=== PATIENT | male | born 1950 | race Caucasian/White ===

== ENCOUNTER → 2017-06-11 | Outpatient (CLI) | payer MEDICARE, BC ==
[~2017-06-11] MED LIST: ATORVASTATIN CA80 MG PO; DOXYCYCLINE HY100 M4 PO; FENOFIBRATE MI200 MG PO; LISINOPRIL20 MG PO; LOPRESSOR 25MG.25 MG PO; METFORMIN HCL1000 MG PO; NAPROSYN 500MG500 MG PO; PERCOCET1 TAB PO; PROAIR HFA0.09 MG/AC IH; SPIRIVA HA1 PUFF/INH IH; TESSALON PERLE100 M1 PO
[2017-06-11 09:18] LABS: HEMOGLOBIN 15.3 g/dL (14.1-18.0); LYMPH # 3.2 K/mm3 (0.7-4.5); LYMPH % 44.6 % (10-50)
[2017-06-11 10:33] LABS: BUN 19 mg/dL (7-18)
[2017-06-11 11:00] LABS: GFR (ESTIMATED) 55 ML/MIN (>60)
== END ==
LOC: LAB 09:08
PROVIDERS: Internal Medicine Adolescent Medicine
DX: E78.5 Hyperlipidemia, unspecified (principal); E55.9 Vitamin D deficiency, unspecified; I10 Essential (primary) hypertension; Z00.00 Encounter for general adult medical examination without abnormal findings; Z79.899 Other long term (current) drug therapy

== ENCOUNTER 2017-08-06 09:36 | Day surgery (SDC) | payer MEDICARE, BC ==
--- NOTE | 2017-08-06 10:55 | Operative Note ---
Colonoscopy (Arianne) Procedure date: 08/06/17 Date of : 50 Procedure:Colonoscopy Colonoscopy with cold snare polypectomy Indications: Mr. Kang is a 67-year-old gentleman who states that this is his fourth or fifth colonoscopy most of which were done in [facility]. He does state that the first time he had a colonoscopy 17 years ago he had a few polyps. The patient does state that his brother had colon cancer in his late 50s. He reports no abdominal pain, weight loss, change in his bowel habits or rectal bleeding. Performing Provider: Kaleb Acuña MD Referrring Provider: Cornelio Ortiz M.D. Sedation: Fentanyl 200 mg IV/Versed 8 mg IV Procedure: Prior to the procedure, a history and physical exam was performed, and patient medications and allergies were reviewed. The risks and benefits of the procedure and the sedation options and risks were discussed with the patient. All questions were answered and informed consent was obtained. Patient identification and proposed procedure were verified by the physician and the nurse. The patient was placed in a left lateral decubitus position. Throughout the procedure, the patient's blood pressure, pulse, and oxygen saturations were monitored continuously. Findings: On digital rectal examination there was normal rectal tone. There were no external hemorrhoids. The prostate was 2+, smooth, soft, symmetric without nodules. The colonoscope was introduced through the anal canal to the rectum and advanced to the cecum. The ileocecal valve and appendiceal orifice were identified. The scope was advanced a short distance into the ileum which appeared grossly normal. The scope was then withdrawn into the colon. There were 2 colon polyps identified in the descending 1 and sigmoid 1. These ranged in size from 5 and 8 mm and were all removed via cold snare polypectomy. There were scattered diverticuli throughout the descending and sigmoid colon (LEFT colon). The rectum itself was normal. Upon retroflexion within the rectum there were grade 1 internal hemorrhoids. Impressions: 1. Colonic polyps 2 2. Pandiverticulosis 3. Grade 1 internal hemorrhoids Recommendations: I will follow up the polyp pathology and recommend repeat colonoscopy again in 5 years based upon the polyp histology and patient's family history. I would encourage fiber supplementation on a long-term daily maintenance basis. Complications: None EBL (ml): 0 at 1056
[2017-08-06 15:00] VITALS: BP 133/78
== END 2017-08-06 11:45 | disposition home or self-care (01) ==
LOC: SDC 09:36
PROVIDERS: Internal Medicine Gastroenterology
PROC: 0DBN8ZX Excision of Sigmoid Colon, Via Natural or Artificial Opening Endoscopic, Diagnostic (ICD-10-PCS; 2017-08-06)
PROC: 0DBM8ZX Excision of Descending Colon, Via Natural or Artificial Opening Endoscopic, Diagnostic (ICD-10-PCS; principal; 2017-08-06 10:30)
DX: Z12.11 Encounter for screening for malignant neoplasm of colon (principal); D12.4 Benign neoplasm of descending colon; D12.5 Benign neoplasm of sigmoid colon; K57.30 Diverticulosis of large intestine without perforation or abscess without bleeding; K64.0 First degree hemorrhoids; Z80.0 Family history of malignant neoplasm of digestive organs; Z87.19 Personal history of other diseases of the digestive system; Z79.84 Long term (current) use of oral hypoglycemic drugs; Z79.899 Other long term (current) drug therapy

== ENCOUNTER 2017-08-20 19:29 | Emergency (ER) | payer MEDICARE, BC ==
[~2017-08-20] VITALS: Ht 175.3 cm; Wt 99.8 kg
--- OUTSIDE RECORDS SUMMARY | 2017-08-20 19:46 | External Medical Summary Rpt | CCD ---
Author Author CHEYENNE Address Unknown Phone Purpose Continuity of Care Document - through 2016
--- OUTSIDE RECORDS SUMMARY | 2017-08-20 19:47 | External Medical Summary Rpt | CCD ---
Author Author , IMMANUEL QUINN Address Unknown Phone [email or web address] Immunization Name Date Rout CVX Reac Dose Comm Prov Is Faci e tion ent ider Refu lity Give sed n Infl 10-0 Intr 135 999 Hist D203 No D203 uenz 5-20 amus oric 50 50 a, 16 cula al High r Info rmat Dose ion - Sour ce Unsp ecif ied PCV1 05-1 Intr 133 999 Hist D203 No D203 3 1-20 amus oric 50 50 16 cula al r Info rmat ion - Sour ce Unsp ecif ied Infl 10-1 Intr 135 999 Hist D203 No D203 uenz 4-20 amus oric 50 50 a, 15 cula al High r Info rmat Dose ion - Sour ce Unsp ecif ied Infl 09-2 Intr 999 Hist D203 No D203 uenz 4-20 amus oric 50 50 a 14 cula al Quad r Info rmat W/Pr ion es - Sour ce Unsp ecif ied
--- OUTSIDE RECORDS SUMMARY | 2017-08-20 19:47 | External Medical Summary Rpt | CCD ---
Author Author , IMMANUEL QUINN Address Unknown Phone [email or web address] Immunization Name Date Rout CVX Reac Dose [...]
[2017-08-20 20:23] LABS: HEMOGLOBIN 14.6 g/dL (14.1-18.0); LYMPH # 3.3 K/mm3 (0.7-4.5); LYMPH % 23.7 % (10-50)
[2017-08-20 20:50] LABS: URINE BILIRUBIN - DIPSTICK NEGATIVE (NEG); URINE BLOOD NEGATIVE (NEG)
[2017-08-20] MEDS ORDERED: ULTRAM50 MG PO (21:56)
[2017-08-20] MEDS ORDERED: FLEXERIL10 MG PO (21:57)
--- NOTE | 2017-08-20 21:57 | Emergency Room Report ---
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 N Clinical Suspician of Infection? N Mental Status: 1 - Regular (Normal Baseline) Sepsis Risk:Low Sepsis Risk Have you (or family members/close friends) recently traveled outside the [place]? N If Yes, where/when: Have you had exposure to infectious disease within the past month? N TB? Other? Specify: Source patient, RN notes reviewed, family, RN/MD Exam Limitations no limitations Comment This is a 67-year-old male patient fell off a six-foot ladder around 3 PM, falling across the riding lawnmower. Patient was unable to get off the ground and had to call his neighbor to help him raise up. He is here complaining with low back pain, pelvis and LEFT hip / LEFT leg pain. Patient denies any head injury of loss of consciousness. ALLERGIES Coded Allergies: niacin (07/31/17) Uncoded Allergies: IV CONTRAST DYE (08/30/16) Home Medications Active Scripts Doxycycline Hyclate (Vibramycin) 100 MG PO BID #20 CAP Prov: 08/30/16 OXYCODONE HCL/ACETAMINOPHEN (Percocet 5-325 MG Tablet) 1 TAB PO Q6HP PRN pain #20 TAB Prov: 08/30/16 Benzonatate (Tessalon Perle) 100 MG PO TIDP PRN cough #20 SGL Prov: 08/30/16 Reported Medications Atorvastatin Calcium 80 MG PO QHS #30 Lisinopril 20 MG PO DAILY #90 Metoprolol Tartrate (Lopressor) 25 MG PO DAILY #90 METFORMIN HCL (Metformin 1000MG) 1,000 MG PO DAILY #90 Tiotropium [place] (Spiriva) 2 PUFFS IH DAILY #30 FENOFIBRATE,MICRONIZED (Fenofibrate) 200 MG PO DAILY #90 Albuterol Sulfate (Proair Hfa) 1 PUFF IH Q6HP PRN SHORTNESS OF BREATH #8 History Medical History General CAD? No Angina: No SD: No Hypertension? Yes Hyperlipidemia? Yes CHF? No DVT? No PE? No COPD? Yes Asthma? No Anemia? No GERD? No Gastric ulcers? No GI Bleed? No Hernia? Yes Thyroid Problems? No Hypothyroidism? No CVA? No Seizures? No Diabetes? No Renal Insuffiency? No End Stage Renal Disease? No UTI? No Stones? No BPH? No GB Disease: No Nephritic Syndrome? No Asplenia? No Hepatitis? No Sickle Cell Disease? No Arthritis? No Migraines? No Cataracts? No Glaucoma? No MRSA? No HIV? No TB? No Anxiety? No Depression? No Cancer? No More? No Immunization Hx DT/Tetanus UNKNOWN Flu 2YRSorMore Pneumonia NEVER Surgical Hx Previous Surgery?Y HERNIA REPAIR COLONOSCOPY X3 BILAT ROTATOR CUFF REPAIR HEART SURGERY Family History Family Hx Diabetes Yes CAD No Hypertension Yes Hyperlipidemia Yes Cancer Yes TB No Social History Smoking Hx Smoker: Current Every Day Smoker Tobacco: Yes Type Cigarettes Packs/day 1 1/2 - 2 Packs Alcohol Alcohol: Yes Review of Systems All Other Systems Reviewed and Negative Musculoskeletal back pain, joint pain (RIGHT hip, pelvis pain) Physical Exam Vital Signs Vital Signs Date Time Temp Pulse Resp B/P Pulse O2 O2 Flow FiO2 Ox Delivery Rate 08/20 2205 98.0 88 18 101/73 95 08/20 2204 98.0 88 18 101/73 95 08/20 2203 18 08/20 2057 98.0 88 20 101/73 95 08/20 2055 88 20 101/73 95 08/20 1934 89 20 144/93 96 General Appearance normal appearance, WD/WN, moderate distress Neck normal inspection, non-tender, supple, full range of motion Respiratory Status Yes: trachea midline, chest symmetrical, non tender chest. No: respiratory distress. Lung Sounds bilateral: normal breath sounds, lungs clear. Cardiovascular normal exam, regular rate/rhythm, no peripheral edema, no gallop, no JVD, no murmur, no rub, normal peripheral pulses Gastrointestinal normal bowel sounds, normal exam, non tender, soft, no organomegaly Back vertebral tenderness (lumbar spine) Extremities normal range of motion, normal inspection, LEFT hip / LEFT thigh tender to palpation Neurologic alert, family medicine chair II-XII nml as tested, normal exam, oriented x 3 Mental status normal mood/affect Skin intact, normal color, warm/dry Medical Decision Making LABS/Meds/Orders Pt receiving controlled substance in ED? Yes Lucius was queried for this patient? No Reason not queried - hospital network issues Risks/benefits of using a controlled substance for treatment were discussed w/pt by me Comment Upon reevaluation patient is medically stable, clinically improving, ambulatory to the bathroom. Advised patient to take the pain medication prescribed as directed and follow-up with PCP if not better per discharge instructions. Results/Orders Laboratory Tests 08/20/172041: Urine Color YELLOW, Urine Appearance CLEAR, Urine pH 5.5, Ur Specific Ty Ty <= 1.005, Urine Protein NEGATIVE, Urine Ketones NEGATIVE, Urine Blood NEGATIVE, Urine Nitrate NEGATIVE, Urine Bilirubin NEGATIVE, Urine Urobilinogen 0.2, Ur Leukocyte Esterase NEGATIVE, Urine WBC OCC, Urine Bacteria 1+, Urine Glucose NEGATIVE 08/20/171944: Sodium 134 L, Potassium 4.1, Chloride 99, Carbon Dioxide 27, BUN 20 H, Creatinine 1.3, Estimated Creat Clear 78, Estimated GFR (MDRD) 55, Glucose 94, Calcium 8.9, Total Bilirubin 0.4, AST 38 H, ALT 45, Alkaline Phosphatase 48, Total Protein 7.8, Albumin 4.1, Globulin 3.7 H, Albumin/Globulin Ratio 1.1, WBC 13.8 H, RBC 4.95, Hgb 14.6, Hct 44.4, MCV 89.6, RDW 13.0, Plt Count 255, MPV 7.4, Gran % 69.5, Gran # 9.6 H, Lymphocytes % 23.7, Monocytes % 5.5, Eosinophils % 0.8, Basophils % 0.6, Lymphocytes # 3.3, Monocytes # 0.8, Eosinophils # 0.1, Basophils # 0.1, PUBS MCHC 32.9, MCH 29.5, Alcohols 88 Current Medication Orders Sig/Delaney Start time Last Medication Dose Route Stop Time Status Admin Oxycodone/ 1 TAB ONCE ONE 08/20 2200 DC 08/20 Acetaminophen PO 08/20 Tramadol HCl 1 YASMEEN ONCE ONE 08/20 2200 DC 08/20 PO 08/20 Tramadol HCl 0 .STK-MED ONE 08/20 2155 DC PO Oxycodone/ 0 .STK-MED ONE 08/20 2154 DC Acetaminophen PO Sodium Chloride 10 ML PRN PRN 08/20 1945 DCD IV 08/21 1944 Orders Procedure Date/time Status URINALYSIS/COMPLETE 08/20 2043 Complete CBC WITH AUTO DIFF 08/20 2013 Complete CHEM 12 PROFILE 08/20 2013 Complete ALCOHOL 08/20 2013 Complete PELVIS AP ONLY 08/20 2002 Active FEMUR-LT-2 VIEWS 08/20 2002 Active CHEST-AP VIEW ONLY 08/[address] PELVIS W/O CONTRAST 08/[address] LUMBAR SPINE W/O CONTRAST 08/20 1946 Active IV SALINE LOCK 08/[address] SCAN REQUEST 08/20 1943 Complete XRAY/CT/US XRAY/CT/US CT CT scan lumbar spine without contrast - no acute fracture, + DJD CT scan pelvis without contrast - no acute fracture chest x-ray - negative LEFT femur x- ray - negative Departure Departure Time of Disposition 2152 Disposition DC Home or Self Care(routine) Clinical Impression Primary Impression: Contusion Qualifiers: Encounter type: initial encounter Contusion area: lower back Qualified Code: S30.0XXA - Contusion of lower back and pelvis, initial encounter Secondary Impressions: Back pain Qualifiers: Back pain location: low back pain Chronicity: acute Back pain laterality: unspecified Sciatica presence: without sciatica Qualified Code: M54.5 - Low back pain Fall Qualifiers: Encounter type: initial encounter Qualified Code: W19.XXXA - Unspecified fall, initial encounter Condition STABLE Referrals Diana BHAT,Cornelio (Family): 2 Days-Call Office if not better Patient Instructions DI for Contusion, DI for Low Back Pain, How to Prevent Falls Additional Instructions Please take the pain medications as directed, follow-up with your family physician within 2 days if not better. Discharge Counseling Counseled pt/family regarding diagnosis, test results, medications/RX, home care, follow up needs Comment Please take the pain medications as directed, follow-up with your family physician within 2 days if not better. Prescriptions Current Visit Scripts Tramadol Hcl (Ultram 50MG) 50 MG PO QIDP PRN pain #12 TAB Cyclobenzaprine Hcl (Flexeril) 10 MG PO TID #30 TAB ED Critical Care Critical Care No at [id number]
[2017-08-20 22:05] VITALS: BP 101/73
--- NOTE | 2017-08-21 04:22 | RADIOLOGY REPORT PS360 ---
CHEST-AP VIEW ONLY HISTORY: Pain following injury FALL FROM LADDER ORDERING PHYSICIAN: Js Meyers MD PATIENT AGE: 67 years COMPARISON: None available FINDINGS: The cardiomediastinal silhouette and pulmonary vascularity are within normal limits. COPD with chronic changes. Chronic blunting of the left CP angle. No lobar consolidation or collapse. Patchy density is present in the right upper lobe possibly related airspace disease such as pneumonia or contusion. CT chest may confirm. No acute bony anomalies IMPRESSION: COPD with chronic changes. Patchy increased density right upper lobe which could be due to an area of infiltrate or contusion
--- NOTE | 2017-08-21 04:23 | RADIOLOGY REPORT PS360 ---
PELVIS AP ONLY HISTORY: Pain following injury FALL FROM LADDER ORDERING PHYSICIAN: Js Meyers MD PATIENT AGE: 67 years COMPARISON: None FINDINGS: No fracture or dislocation is evident. No significant degenerative change. No lytic or blastic change. The SI joints have an unremarkable appearance. Unremarkable soft tissues. Incidental vascular calcification IMPRESSION: No acute finding.
--- NOTE | 2017-08-21 04:25 | RADIOLOGY REPORT PS360 ---
FEMUR-LT-2 VIEWS HISTORY: FALL FROM LADDER ORDERING PHYSICIAN: Js Meyers MD PATIENT AGE: 67 years COMPARISON: None FINDINGS: No fracture or dislocation. No lytic or blastic change. There is normal mineralization. The joint spaces are well-preserved. No significant degenerative/arthritic changes. No erosive changes evident. Accessory center of ossification versus an old fracture of the tip of the greater trochanter IMPRESSION: No acute finding.
--- NOTE | 2017-08-21 04:33 | RADIOLOGY REPORT PS360 ---
CT LUMBAR SPINE W/O CONTRAST CLINICAL INDICATION: Low back pain radiating in the left leg following injury FALL OFF LADDER ORDERING PHYSICIAN: Js Meyers MD PATIENT AGE: 67 years COMPARISON: None TECHNIQUE:Axial, sagittal, and coronal images are generated and reviewed without contrast COMPARISON: None FINDINGS:There is normal alignment. There is some cortical irregularity involving the right L3 transverse process consistent with a nondisplaced fracture. This may be old. Please correlate clinically. No other fracture is evident. L3-L4: Bulging discs mild facet and ligamentum flavum hypertrophy. L4-L5: Bulging disc with ligamentum flavum hypertrophy. L5-S1: Mild degenerative disc disease with bulging disc eccentric right with right-sided foraminal narrowing. There is fusion of the SI joints. IMPRESSION: 1. Nondisplaced fracture right L3 transverse process which may be old. Please correlate clinically 2. No other fracture evident. 3. Lumbar spondylosis with fusion of the SI joints
--- NOTE | 2017-08-21 04:36 | RADIOLOGY REPORT PS360 ---
CT PELVIS W/O CONTRAST INDICATION: Pelvic pain following injury FALL OFF LADDER ORDERING PHYSICIAN: Js Meyers MD PATIENT AGE: 67 years COMPARISON: None TECHNIQUE: Axial images are obtained without contrast. Sagittal and coronal reformatted images are reviewed as well. FINDINGS: No acute fracture or dislocation. There is fusion of the SI joint superiorly. No pelvic hematoma. There are small bilateral inguinal hernias and a small umbilical hernia containing fat there is an accessory center of ossification versus an old ununited avulsion fracture of the greater trochanter. There is sigmoid diverticulosis. The appendix is unremarkable. IMPRESSION: 1. No acute fracture. 2. Other nonacute findings as described above 3. Bilateral fusion of the SI joint superiorly
== END 2017-08-20 22:05 | disposition home or self-care (01) ==
LOC: ER 19:29
PROVIDERS: Emergency Medicine
DX: S30.0XXA Contusion of lower back and pelvis, initial encounter (principal); W11.XXXA Fall on and from ladder, initial encounter; Y93.9 Activity, unspecified; Y92.009 Unspecified place in unspecified non-institutional (private) residence as the place of occurrence of the external cause; Z79.84 Long term (current) use of oral hypoglycemic drugs; Z79.51 Long term (current) use of inhaled steroids; Z79.899 Other long term (current) drug therapy; I10 Essential (primary) hypertension; E78.5 Hyperlipidemia, unspecified; J44.9 Chronic obstructive pulmonary disease, unspecified; F17.210 Nicotine dependence, cigarettes, uncomplicated

== ENCOUNTER → 2017-09-12 | Outpatient (CLI) | payer MEDICARE, BC ==
[~2017-09-12] MED LIST changes: +FLEXERIL10 MG PO; +ULTRAM50 MG PO
[2017-09-12 10:41] LABS: URINE BILIRUBIN - DIPSTICK NEGATIVE (NEG); URINE BLOOD NEGATIVE (NEG)
== END ==
LOC: LAB 10:19
PROVIDERS: Internal Medicine Adolescent Medicine
DX: Z23 Encounter for immunization (principal); E11.69 Type 2 diabetes mellitus with other specified complication; E66.9 Obesity, unspecified

== ENCOUNTER → 2017-09-14 | Outpatient (CLI) | payer MEDICARE, BC ==
--- NOTE | 2017-09-14 14:33 | RADIOLOGY REPORT PS360 ---
US [id number] HISTORY: ELEVATED CREATINE,ABNORMAL KIDNEYS FUNCTIONS,DM II ORDERING PHYSICIAN: Cornelio Ortiz MD PATIENT AGE: 67 years COMPARISON: None FINDINGS: RIGHT KIDNEY:Unremarkable. Normal size and echogenicity. No hydronephrosis 12 x 6 x 7 cm. LEFT KIDNEY:Small cortical cysts are present involving the left kidney. At least 3 small cysts are present in the upper pole measuring approximately 1 cm each. No hydronephrosis. Normal size and echogenicity. OTHER FINDINGS: No other pertinent findings IMPRESSION: 1. No hydronephrosis. 2. Small left renal cortical cyst.
== END ==
LOC: RAD 09:56
DX: E11.69 Type 2 diabetes mellitus with other specified complication (principal); E66.9 Obesity, unspecified; R94.4 Abnormal results of kidney function studies; Z23 Encounter for immunization

== ENCOUNTER → 2017-09-24 | Outpatient (CLI) | payer MEDICARE, BC ==
[2017-09-24 09:37] LABS: BUN 19 mg/dL (7-18)
[2017-09-24 09:49] LABS: GFR (ESTIMATED) 51 ML/MIN (>60)
== END ==
LOC: LAB 08:29
PROVIDERS: Internal Medicine Adolescent Medicine
DX: Z23 Encounter for immunization (principal); E11.69 Type 2 diabetes mellitus with other specified complication; E66.9 Obesity, unspecified